=== PATIENT | female | born 1990 | race Caucasian/White ===

== ENCOUNTER 2017-03-09 18:32 | Emergency (ER) | payer SELFPAY ==
[~2017-03-09] VITALS: Ht 165.1 cm; Wt 63.5 kg
[2017-03-09 18:32] VITALS: BP_SYST 132
[2017-03-09] MEDS ORDERED: HYDROcodone/ACETAMIN 7.5-325 MG TAB PO ONE (18:45)
[2017-03-09] MEDS ORDERED: BACITRACIN 1 GM OINT TP ONE (18:45)
[2017-03-09] MEDS ORDERED: LIDOCAINE 1% 10 MG/ML, 20 ML MDV INJ ONE (18:45)
[2017-03-09] MEDS ORDERED: CEPHALEXIN 500 MG CAPSULE PO ONE (20:15)
[2017-03-09 20:50] VITALS: BP_SYST 129
== END 2017-03-09 20:50 | disposition home or self-care (01) ==
LOC: SED 18:32
DX: S92.415A Nondisplaced fracture of proximal phalanx of left great toe, initial encounter for closed fracture (principal); S91.112A Laceration without foreign body of left great toe without damage to nail, initial encounter; W23.0XXA Caught, crushed, jammed, or pinched between moving objects, initial encounter; Y93.89 Activity, other specified; Y92.89 Other specified places as the place of occurrence of the external cause; Y99.8 Other external cause status
CPT/HCPCS: 12001; 73660; 99284; J2001